=== PATIENT | male | born 1995 | race American Indian/Alaskan Native ===

== ENCOUNTER 2017-07-24 12:08 | Emergency (ER) | payer SELFPAY ==
[2017-07-24] MEDS ORDERED: DUONEB *Not for PRN Use IH ONE ×2 (14:18)
[2017-07-24] MEDS ORDERED: DELTASONE PO ONE (14:19)
[2017-07-24] MEDS ORDERED: GUAIFENESIN DM SYRUP PO ONE (14:20)
--- NOTE | 2017-07-24 14:28 | Emergency Department Report ---
- General Chief Complaint: Upper Respiratory Infection Stated Complaint: CHEST PAIN AND SOB Time Seen by Provider: 07/24/17 14:18 Source: patient Mode of arrival: Ambulatory Limitations: No Limitations - History of Present Illness Initial Comments: 21-year-old male past medical history smoker presents with 1.5 weeks of persistent cough. Patient is fully lucid awake alert and oriented 3. States that for 2-3 days now he has had some intermittent substernal chest discomfort. States he feels congested. Denies using any bswi-igx-itjxxns cough medicines. States his sputum has been productive with slightly brown discoloration. MD Complaint: cough Onset/Timin -: week(s) Severity: moderate Improves With: nothing Context: sick contacts Associated Symptoms: cough Treatments Prior to Arrival: none - Related Data Previous Rx's Medication Instructions Recorded Last Taken Type Albuterol Sulfate [Ventolin Hfa] 1 gm IH Q4H PRN #1 hfa.aer.ad 07/24/17 Unknown Rx Bismuth Subsalicylate 10 ml PO QID PRN #1 udc 07/24/17 Unknown Rx [Pepto-Bismol] Famotidine [Pepcid] 20 mg PO BID PRN #30 tablet 07/24/17 Unknown Rx Ibuprofen [Motrin] 600 mg PO Q8H PRN #30 tablet 07/24/17 Unknown Rx Phenylephrine/Dm/Acetaminop/GG 10 ml PO Q6H PRN #1 liquid 07/24/17 Unknown Rx [Mucinex Tpad-Anq-Qcsophgexj Lq] Allergies Allergy/AdvReac Type Severity Reaction Status Date / Time No Known Allergies Allergy Unverified 07/24/17 12:14 ED Review of Systems ROS: Stated complaint: CHEST PAIN AND SOB Other details as noted in HPI Constitutional: denies: chills, fever Eyes: denies: eye pain, eye discharge, vision change ENT: denies: ear pain, throat pain Respiratory: cough. denies: shortness of breath, wheezing Cardiovascular: chest pain. denies: palpitations Endocrine: no symptoms reported Gastrointestinal: denies: abdominal pain, nausea, diarrhea Genitourinary: denies: urgency, dysuria Musculoskeletal: denies: back pain, joint swelling, arthralgia Skin: denies: rash, lesions Neurological: denies: headache, weakness, paresthesias Psychiatric: denies: anxiety, depression Hematological/Lymphatic: denies: easy bleeding, easy bruising ED Past Medical Hx - Past Medical History Previous Medical History?: No - Surgical History Past Surgical History?: No - Social History Smoking Status: Current Every Day Smoker Substance Use Type: Alcohol, Other - Medications Home Medications: Home Medications Medication Instructions Recorded Confirmed Last Taken Type Albuterol Sulfate [Ventolin Hfa] 1 gm IH Q4H PRN #1 hfa.aer.ad 07/24/17 Unknown Rx Bismuth Subsalicylate 10 ml PO QID PRN #1 udc 07/24/17 Unknown Rx [Pepto-Bismol] Famotidine [Pepcid] 20 mg PO BID PRN #30 tablet 07/24/17 Unknown Rx Ibuprofen [Motrin] 600 mg PO Q8H PRN #30 tablet 07/24/17 Unknown Rx Phenylephrine/Dm/Acetaminop/GG 10 ml PO Q6H PRN #1 liquid 07/24/17 Unknown Rx [Mucinex Zeda-Ygx-Ftkhttmdqw Lq] ED Physical Exam - General Limitations: No Limitations General appearance: alert, in no apparent distress - Head Head exam: Present: atraumatic, normocephalic - Eye Eye exam: Present: normal appearance, PERRL, EOMI - ENT ENT exam: Present: mucous membranes moist - Neck Neck exam: Present: normal inspection - Respiratory Respiratory exam: Present: normal lung sounds bilaterally. Absent: respiratory distress - Cardiovascular Cardiovascular Exam: Present: regular rate, normal rhythm. Absent: systolic murmur, diastolic murmur, rubs, gallop - GI/Abdominal GI/Abdominal exam: Present: soft, normal bowel sounds - Rectal Rectal exam: Present: deferred - Extremities Exam Extremities exam: Present: normal inspection - Back Exam Back exam: Present: normal inspection - Neurological Exam Neurological exam: Present: alert, oriented X3 - Psychiatric Psychiatric exam: Present: normal affect, normal mood - Skin Skin exam: Present: warm, dry, intact, normal color. Absent: rash ED Course Vital Signs 07/24/17 12:14 Temperature 98.4 F Pulse Rate 76 Respiratory 16 Rate Blood Pressure 125/74 O2 Sat by Pulse 100 Oximetry ED Medical Decision Making - Medical Decision Making A/P: Viral syndrome, reactive airway disease, chest discomfort 1-case discussed with Dr. Barton, chest x-ray reviewed with Dr. Barton, as per Dr. Barton unremarkable 2-EKG normal sinus rhythm. PERC Rule => 0 criteria. No need for further workup, as <2% chance of PE. If no criteria are positive and clinicians pre-test probability is <15%, PERC Rule criteria are satisfied. 3-naproxen when necessary, short course prednisone, Pepto-Bismol, albuterol inhaler, Mucinex 4-with primary care doctor. Vital signs stable before discharge Critical care attestation.: If time is entered above; I have spent that time in minutes in the direct care of this critically ill patient, excluding procedure time. ED Disposition Clinical Impression: Viral syndrome Reactive airway disease Qualifiers: Asthma severity: mild Asthma persistence: intermittent Asthma complication type : uncomplicated Qualified Code(s): J45.20 - Mild intermittent asthma, uncomplicated Chest pain Qualifiers: Chest pain type: other chest pain Qualified Code(s): R07.89 - Other chest pain ; R07.8 - Other chest pain Disposition: TO HOME OR SELFCARE Is pt being admited?: No Does the pt Need Aspirin: No Condition: Stable Instructions: Chest Pain (ED), Reactive Airways Disease (ED), Costochondritis ( ED) Prescriptions: Albuterol Sulfate [Ventolin Hfa] 1 gm IH Q4H PRN #1 hfa.aer.ad PRN Reason: Cough Bismuth Subsalicylate [Pepto-Bismol] 10 ml PO QID PRN #1 udc PRN Reason: Indigestion Famotidine [Pepcid] 20 mg PO BID PRN #30 tablet PRN Reason: Indigestion Ibuprofen [Motrin] 600 mg PO Q8H PRN #30 tablet PRN Reason: Pain Phenylephrine/Dm/Acetaminop/GG [Mucinex Sxbm-Yho-Wgfpbtjgal Lq] 10 ml PO Q6H PRN #1 liquid PRN Reason: Cough Referrals: [facility] [Outside] - 3-5 Days [facility] [Outside] - 3-5 Days [facility] [Provider Group] - 3-5 Days Forms: Work/School Release Form(ED) Time of Disposition: 15:36
[2017-07-24] MEDS ORDERED: MOTRIN PO ONE ×2 (15:28→15:39)
[2017-07-24 15:50] VITALS: BP 128/75
--- NOTE | 2017-07-24 16:25 | XRay Report ---
FINAL REPORT PROCEDURE: XR CHEST ROUTINE 2V TECHNIQUE: PA and lateral chest radiographs were obtained. CPT 89630 HISTORY: worsening cough 1.5 weeks hx of PNA COMPARISON: No prior studies are available for comparison. FINDINGS: Heart: Normal. Mediastinum/Vessels: Normal. Lungs/Pleural space: Normal. Bony thorax: No acute osseous abnormality. Other: IMPRESSION: Negative examination.
== END 2017-07-24 15:49 | disposition home or self-care (01) ==
LOC: ED 12:08
DX: J45.909 Unspecified asthma, uncomplicated (principal); B34.9 Viral infection, unspecified; F17.200 Nicotine dependence, unspecified, uncomplicated
CPT/HCPCS: 71046; 93005; 93010; 99283; J7512